=== PATIENT | male | born 1980 | race Caucasian/White ===

== ENCOUNTER → 2017-09-12 | Outpatient (CLI) | payer OTHER, BC ==
[~2017-09-12] MED LIST: ALEV220C2 PO; BENT10CA PO; LISI10TA4 PO; MIRA3350 PO; MULTTAB50 PO; OMEP10CASR PO
[2017-09-12 16:51] LABS: BASO % 0.4 % (0.0-1.0); EOS # 0.1 10^3/uL (0.0-0.50); EOS % 1.5 % (0.0-3.0); IMMATURE GRANULOCYTE % 0.4 % (0-0); LYMPH # 2.2 10^3/uL (1.5-4.5); LYMPH % 30.5 % (24.0-44.0); MEAN CORPUSCULAR HEMOGLOBIN 30.4 pg (27.0-33.0); MEAN CORPUSCULAR HGB CONC 33.6 g/dl (32.0-36.5); MEAN CORPUSCULAR VOLUME 90.7 fl (80.0-96.0); MONO # 0.8 10^3/uL (0.0-0.8); MONO % 11.7 % (0.0-5.0); NEUTROPHILS # 3.9 10^3/uL (1.8-7.7); NEUTROPHILS % 55.5 % (36.0-66.0); PLATELET COUNT, AUTOMATED 312 10^3/uL (150-450); RED CELL DISTRIBUTION WIDTH 12.7 % (11.5-14.5); WHITE BLOOD COUNT 7.1 10^3/uL (4.0-10.0)
[2017-09-12 18:08] LABS: ALBUMIN/GLOBULIN RATIO 1.18 (1.00-1.93); ALKALINE PHOSPHATASE 58 U/L (45-117); ALT/SGPT 54 U/L (12-78); ANION GAP 9 MEQ/L (8-16); AST/SGOT 24 U/L (15-37); BILIRUBIN,TOTAL 0.4 MG/DL (0.2-1.0); BLOOD UREA NITROGEN 15 MG/DL (7-18); CALCIUM LEVEL 9.3 MG/DL (8.5-10.1); CARBON DIOXIDE LEVEL 26 MEQ/L (21-32); CHLORIDE LEVEL 104 MEQ/L (98-107); CREATININE FOR GFR 0.83 MG/DL (0.70-1.30); GLOMERULAR FILTRATION RATE > 60.0 (>60); GLUCOSE, FASTING 75 MG/DL (70-105); POTASSIUM SERUM 4.5 MEQ/L (3.5-5.1); SODIUM LEVEL 139 MEQ/L (136-145); TOTAL PROTEIN 7.4 GM/DL (6.4-8.2)
== END ==
LOC: M WUC 13:55
PROVIDERS: ATTEND Physician Assistant
DX: R10.11 Right upper quadrant pain (principal)

== ENCOUNTER 2017-09-13 07:16 | Emergency (ER) | payer BC, OTHER ==
[~2017-09-13] VITALS: Ht 182.9 cm; Wt 147.2 kg
[~2017-09-13 07:16] MED LIST changes: -ALEV220C2 PO; -BENT10CA PO; -MIRA3350 PO
[2017-09-13] MEDS ORDERED: ALEV220C2 PO (07:30)
[2017-09-13] MEDS ORDERED: KETOROLAC 30 MG/ML VIAL (J1885) IV ONE (08:00)
[2017-09-13 08:29] LABS: BASO % 0.4 % (0.0-1.0); EOS # 0.1 10^3/uL (0.0-0.50); EOS % 1.9 % (0.0-3.0); IMMATURE GRANULOCYTE % 0.3 % (0-0); LYMPH # 1.9 10^3/uL (1.5-4.5); LYMPH % 28.1 % (24.0-44.0); MEAN CORPUSCULAR HEMOGLOBIN 30.5 pg (27.0-33.0); MEAN CORPUSCULAR HGB CONC 33.8 g/dl (32.0-36.5); MEAN CORPUSCULAR VOLUME 90.2 fl (80.0-96.0); MONO # 0.6 10^3/uL (0.0-0.8); MONO % 8.9 % (0.0-5.0); NEUTROPHILS # 4.1 10^3/uL (1.8-7.7); NEUTROPHILS % 60.4 % (36.0-66.0); PLATELET COUNT, AUTOMATED 276 10^3/uL (150-450); RED CELL DISTRIBUTION WIDTH 12.8 % (11.5-14.5); WHITE BLOOD COUNT 6.8 10^3/uL (4.0-10.0)
--- NOTE | 2017-09-13 08:58 | REP ---
ABDOMINAL SERIES: Supine erect views of the abdomen demonstrate no free air and no evidence for obstruction. No dilated small bowel loops are seen. A phlebolith is seen in the right pelvis. An accompanying view of the chest demonstrates no acute infiltrate. Cardiomediastinal silhouette is unremarkable. IMPRESSION: Negative abdominal series. Signed by Donn An MD 09/16/2017 09:43 A
[2017-09-13 09:22] LABS: ALBUMIN 3.9 GM/DL (3.2-5.2); ALBUMIN/GLOBULIN RATIO 1.18 (1.00-1.93); ALKALINE PHOSPHATASE 56 U/L (45-117); ALT/SGPT 49 U/L (12-78); ANION GAP 7 MEQ/L (8-16); AST/SGOT 22 U/L (15-37); BILIRUBIN,DIRECT 0.1 MG/DL (0.0-0.2); BILIRUBIN,TOTAL 0.3 MG/DL (0.2-1.0); BLOOD UREA NITROGEN 16 MG/DL (7-18); CALCIUM LEVEL 8.9 MG/DL (8.5-10.1); CARBON DIOXIDE LEVEL 27 MEQ/L (21-32); CHLORIDE LEVEL 104 MEQ/L (98-107); CREATININE FOR GFR 0.81 MG/DL (0.70-1.30); GLOMERULAR FILTRATION RATE > 60.0 (>60); GLUCOSE, FASTING 97 MG/DL (70-105); POTASSIUM SERUM 4.6 MEQ/L (3.5-5.1); SODIUM LEVEL 138 MEQ/L (136-145); TOTAL PROTEIN 7.2 GM/DL (6.4-8.2)
[2017-09-13] MEDS ORDERED: BENT10CA PO (10:18)
[2017-09-13] MEDS ORDERED: MIRA3350 PO (10:18)
--- NOTE | 2017-09-13 10:33 | REP ---
CT ABDOMEN AND PELVIS WITHOUT IV CONTRAST: CT abdomen and pelvis performed without IV contrast. Sagittal and coronal reconstruction images are performed. The visualized lung bases demonstrate no infiltrate. The liver demonstrates fatty infiltration diffusely. The spleen is normal in size. Adrenals, pancreas and left kidney are grossly unremarkable. Subcentimeter hyperdense cyst is seen in the upper pole of the right kidney. There is no renal or ureteral calculus and no hydroureteronephrosis. There is no abdominal aortic aneurysm. There is no adenopathy. There is no free air or free fluid. There is no bowel wall thickening. The appendix is normal. I see no pelvic mass. Urinary bladder is not well distended with no gross intraluminal calculus. 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 IMPRESSION: No renal or ureteral calculus and no hydroureteronephrosis. No evidence of appendicitis. Signed by Donn An MD 09/16/2017 09:47 A
[2017-09-13 10:46] VITALS: BP 140/94
== END 2017-09-13 10:51 | disposition home or self-care (01) ==
LOC: M ED 07:16
DX: K59.00 Constipation, unspecified (principal); E66.9 Obesity, unspecified; Z79.899 Other long term (current) drug therapy
CPT/HCPCS: 74022; 74176; 80048; 80076; 81001; 83690; 85025; 93041; 96374; 99284; J1885

== ENCOUNTER → 2017-09-13 | Outpatient (CLI) | payer BC, OTHER ==
--- NOTE | 2017-09-13 08:51 | REP ---
RIGHT UPPER QUADRANT ULTRASOUND: Real-time sonographic evaluation of the right upper quadrant performed. Study is limited by patient body habitus. No definite stones are seen in the gallbladder. There is no evidence of gallbladder wall thickening. There is no evidence of free fluid. The common bile duct could not be visualized. There is no definite intrahepatic biliary dilatation. There appears to be diffuse fibrofatty infiltration of the liver. Pancreas could not be seen due to overlying bowel gas. Right kidney demonstrates no hydronephrosis. It is normal in size with a length of 11.3 cm. IMPRESSION: Limited by body habitus and bowel gas. No definite stones in the gallbladder. No definite free fluid. Common bile duct could not be visualized. No evidence of intrahepatic biliary dilatation. Diffuse fibrofatty infiltration of the liver. Signed by Donn An MD 09/16/2017 09:42 A
== END ==
LOC: M RAD 06:42
PROVIDERS: ATTEND Physician Assistant
DX: R10.11 Right upper quadrant pain (principal)

== ENCOUNTER → 2019-01-12 | Outpatient (CLI) | payer BC, OTHER ==
[~2019-01-12] MED LIST changes: +ALEV220C2 PO; +BENT10CA PO; +MIRA3350 PO
--- NOTE | 2019-01-12 14:45 | REP ---
LEFT WRIST, FOUR VIEWS: HISTORY: Pain. There is no acute fracture or dislocation. The joint spaces are normal in appearance. IMPRESSION: There is no acute fracture or dislocation. Electronically Signed by Stephen Drew MD 01/12/2019 02:49 P
== END ==
LOC: M WUC 13:57
PROVIDERS: ATTEND Physician Assistant
DX: M25.532 Pain in left wrist (principal)

== ENCOUNTER → 2019-11-27 | Outpatient (CLI) | payer BC, OTHER ==
--- NOTE | 2019-11-27 13:18 | REP ---
MRI left knee without contrast: History: Bursitis left knee. Injury while kneeling. Prepatellar bursitis. No comparison imaging available. Technique: Axial, coronal, and sagittal imaging planes were utilized. T1, proton density and T2-weighted scans were obtained with and without fat saturation. MRI findings: There is a small to moderate joint effusion visible in the suprapatellar bursa. No San's cyst is seen. Medial and lateral patellar retinacular structures appear intact. There is mild edema diffusely in the prepatellar soft tissues. There is thickening and increased signal intensity in the proximal centimeter of the patellar tendon with T2 hyperintense signal at the patellar tendon insertion on the lower pole of the patella. Patellar tendon and quadriceps tendon are otherwise unremarkable. There is moderate chondromalacia in the central patellar articular cartilage and to a lesser extent in the femoral trochlear articular cartilage medially. There is partial thickness fissuring in the patellar articular cartilage. Mild chondromalacia is seen in the medial and lateral compartments of the tibiofemoral portion of the joint as well. There is subtle blunting of the inner free margin of the mid body of the lateral meniscus. No other evidence of meniscal tear is seen. Anterior and posterior cruciate ligaments are intact. There is no evidence of medial or lateral collateral ligament disruption. Impression: Moderate patellofemoral chondromalacia, mild tibiofemoral chondromalacia. Subtle blunting of the inner free margin of the lateral meniscus at mid body level. Patellar tendonitis changes. Joint effusion. Electronically Signed by Oni Holloway MD 11/27/2019 03:53 P
== END ==
LOC: M RAD 09:42
PROVIDERS: ATTEND Physician Assistant Medical
DX: M70.42 Prepatellar bursitis, left knee (principal); M25.462 Effusion, left knee

== ENCOUNTER → 2020-10-29 | Outpatient (CLI) | payer SELFPAY | LOC: M LABSMTC 11:25 | PROVIDERS: ATTEND Pediatrics | DX: Z20.828 Contact with and (suspected) exposure to other viral communicable diseases (principal) ==

== ENCOUNTER → 2021-02-08 | Outpatient (REF) | payer OTHER ==
[~2021-02-08] MED LIST changes: +LISI10TA22 PO; -LISI10TA4 PO
== END ==
LOC: M LAB REF 09:10
PROVIDERS: ATTEND Surgery
DX: Z30.2 Encounter for sterilization (principal)

== ENCOUNTER → 2021-04-26 | Outpatient (CLI) | payer BC, OTHER ==
--- NOTE | 2021-04-27 15:04 | SLEEPCENT ---
DATE: 04/26/2021 ORDERED BY: Kenya Williamson Nocturnal polysomnography was performed for the titration of pressure therapy in this patient with a clinical diagnosis of obstructive sleep apnea syndrome supported by home testing, revealing a respiratory event index of 11.4. For testing, a [employer]Med Quattro full-face mask of medium size was used. There was 4 cm of water pressure applied to the circuit, and the lights were extinguished. There was 6 hours and 36 minutes of data reviewed. There was 331 minutes of sleep identified. Sleep latency was mildly prolonged at 21.5 minutes. REM latency was normal at 76 minutes. Sleep architecture was good with four REM cycles. Overall sleep efficiency 84.5%. The electrocardiogram showed a sinus rhythm with an average heart rate of 68 beats per minute. EEG showed normal waveforms for wake and sleep. Respiratory events were fully palliated with CPAP at a pressure of +10, and remaining measures of sleep physiology were normal. IMPRESSION: Obstructive sleep apnea syndrome (G47.33). RECOMMENDATION: Nightly use of pressure therapy, 10 cm of water.
== END ==
LOC: M SLEEP 20:00
PROVIDERS: ATTEND Nurse Practitioner Family
DX: G47.33 Obstructive sleep apnea (adult) (pediatric) (principal)

== ENCOUNTER 2023-02-03 08:47 | Emergency (ER) | payer BC, OTHER ==
[~2023-02-03] VITALS: Ht 182.9 cm; Wt 151.0 kg
[2023-02-03 09:30] LABS: HEMOGLOBIN 14.3 g/dl (13.5-17.5); MEAN CORPUSCULAR HEMOGLOBIN 30.2 pg (27.0-33.0); MEAN CORPUSCULAR HGB CONC 32.5 g/dl (32.0-36.5); MEAN CORPUSCULAR VOLUME 92.8 fl (80.0-96.0); PLATELET COUNT, AUTOMATED 275 10^3/uL (150-450); RED BLOOD COUNT 4.74 10^6/uL (4.30-6.10); WHITE BLOOD COUNT 5.9 10^3/uL (4.0-10.0)
[2023-02-03 09:43] LABS: INR 0.88; PROTHROMBIN TIME 12.1 SECONDS (12.5-14.5)
[2023-02-03 10:06] LABS: ALBUMIN 3.8 G/DL (3.2-5.2); ALKALINE PHOSPHATASE 53 U/L (46-116); ALT/SGPT 50 U/L (7.0-40); AST/SGOT 37 U/L (<34); BILIRUBIN,TOTAL 0.4 MG/DL (0.3-1.2); BLOOD UREA NITROGEN 13 MG/DL (9-23); CALCIUM LEVEL 8.7 MG/DL (8.5-10.1); CARBON DIOXIDE LEVEL 25 MMOL/L (20-31); CHLORIDE LEVEL 104 MMOL/L (98-107); CREATININE FOR GFR 0.78 MG/DL (0.70-1.30); GLOMERULAR FILTRATION RATE > 60.0 (>60); GLUCOSE, FASTING 100 MG/DL (60-100); POTASSIUM SERUM 4.5 MMOL/L (3.5-5.1); SODIUM LEVEL 136 MMOL/L (136-145); TOTAL PROTEIN 6.7 G/DL (5.7-8.2)
[2023-02-03 10:34] VITALS: BP 138/82
== END 2023-02-03 10:36 | disposition home or self-care (01) ==
LOC: M ED 08:47
DX: R19.7 Diarrhea, unspecified (principal); I10 Essential (primary) hypertension; K21.9 Gastro-esophageal reflux disease without esophagitis; Z87.891 Personal history of nicotine dependence

== ENCOUNTER → 2023-05-09 | Outpatient (CLI) | payer BC, OTHER ==
[~2023-05-09] MED LIST changes: +LISI30TA4 PO; +OMEP-173 PO; +PHEN30CA21 PO
== END ==
LOC: M SLEEP 20:00
PROVIDERS: ATTEND Nurse Practitioner Family
DX: G47.33 Obstructive sleep apnea (adult) (pediatric) (principal)